=== PATIENT | male | born 1975 | race Asian ===

== ENCOUNTER 2019-07-18 06:14 | Emergency (ER) | payer OTHER ==
[~2019-07-18] VITALS: Ht 185.4 cm; Wt 88.0 kg
[2019-07-18] MEDS ORDERED: NAPR-1025 PO (08:25)
[2019-07-18 08:45] LABS: GLUCOSE,POINT OF CARE 113 MG/DL (70-110)
[2019-07-18] MEDS ORDERED: ACETAMINOPHEN 500 MG TABLET PO ONE (10:15)
[2019-07-18] MEDS ORDERED: IBUPROFEN 400 MG TABLET PO ONE (10:15)
[2019-07-18 12:20] VITALS: BP 135/83
== END 2019-07-18 13:10 | disposition home or self-care (01) ==
LOC: EMS 06:14
DX: M23.92 Unspecified internal derangement of left knee (principal); E11.9 Type 2 diabetes mellitus without complications; F12.90 Cannabis use, unspecified, uncomplicated; Z88.0 Allergy status to penicillin